=== PATIENT | female | born 1940 | race Caucasian/White ===

== ENCOUNTER → 2017-05-07 | Outpatient (CLI) | payer MEDICARE, OTHER ==
--- NOTE | ~2017-05-07 | PUL ---
PATIENT'S NAME: SANDRA RODRIGUEZ [facility] AGE: 76 Y [address] ROOM: [place] [id number] LOCATION: [facility] ADMIT DATE: 05/07/2017 Pulmonary DISCHARGE DATE: FAMILY PHYSICIAN: Nalini Brice MD ATTENDING PHYSICIAN: PAOLA GARZA NAME OF PROCEDURE: Pulmonary Function Test DATE OF PROCEDURE: May 07, 2017 TECH: JUNIOR Moss REASON FOR PROCEDURE: Shortness of breath PROCEDURE PERFORMED: Spirometry with bronchodilators assessment. Measurement of maximum voluntary ventilation. Measurement of lung volumes. Measurement of diffusion capacity. RESULTS: Spirometry showed pre bronchodilator FVC was 1.96 liters, 68% of predicted.; post bronchodilator FVC was 1.99 liters, 69% of predicted. The pre bronchodilator FEV1 was 1.44 liters, 67% of predicted; post-bronchodilator FEV1 was 1.50 liters, 69% of predicted. FEV1/FVC was 74%, 98% of predicted. FEF 25-75% was 1.01 liters/second, 61% of predicted. Peak flow was 5.65 liters, 107% of predicted. Maximum voluntary ventilation was 55 liters/minute, 69% of predicted. Lung volumes showed total lung capacity was 3.39 liters, 60% of predicted. Functional residual capacity was 1.83 liters, 62% of predicted. Residual volume was 1.35 liters, 65% of predicted. The flow volume loop pattern is not interpretable. IMPRESSION: The above data and corresponding flow volume curves are most compatible with moderate ventilatory restriction, with reduced lung volumes, and moderate gas transfer impairment. MD HARRISON POWELL/papito /[id number] dtt: 05/14/17 1733 GREG MEENAKSHI dtd: 05/11/17 1514
[2017-05-07 09:13] LABS: HEMATOCRIT 44.9 % (33.0-46.0); HEMOGLOBIN 15.4 g/dL (10.0-15.0); MCHC 34.3 gm/dL (32.0-36.5); MCV 96.1 fl (83.0-98.0); MPV 10.1 fl (9.4-12.4); PLATELET COUNT 200 K/uL (150-450); RBC 4.67 M/uL (3.50-5.50); RDW-CV 13.4 % (11.9-14.6); WBC 6.3 K/uL (4.0-11.0)
[2017-05-07 09:37] LABS: ABSOLUTE NEUTROPHIL CT (ANC) 2.6 K/uL (1.8-7.8); BANDED NEUTROPHIL # 0.2 K/uL (0.0-0.1); BANDED NEUTROPHILS % 3 %; LYMPHOCYTE # 2.6 K/uL (0.8-4.0); LYMPHOCYTE % 42 %; MONOCYTE # 0.9 K/uL (0.0-1.0); SEGMENTED NEUTROPHIL # 2.4 K/uL (1.8-7.8); SEGMENTED NEUTROPHIL % 38 %
== END | disposition disaster alternative care site (69) ==
LOC: GRAD 08:48
PROVIDERS: Internal Medicine Critical Care Medicine
DX: J32.9 Chronic sinusitis, unspecified (principal); I70.90 Unspecified atherosclerosis; J84.10 Pulmonary fibrosis, unspecified; J98.11 Atelectasis; R06.00 Dyspnea, unspecified; R05 Cough

== ENCOUNTER → 2017-05-15 | Outpatient (CLI) | payer MEDICARE, OTHER | LOC: GBCOE 08:44 | DX: Z12.31 Encounter for screening mammogram for malignant neoplasm of breast (principal) | CPT/HCPCS: G0202 ==